=== PATIENT | male | born 1950 | race Caucasian/White ===

== ENCOUNTER 2021-09-24 06:28 | Day surgery (SDC) | payer MEDICARE ==
[~2021-09-24] VITALS: Ht 188 cm; Wt 100.4 kg
[2021-09-24 07:13] VITALS: BP 148/82; PULSE 78; TEMP 98.6
[2021-09-24 07:52] VITALS: BP 107/71; PULSE 89; TEMP 97.9
--- NOTE | 2021-09-24 07:52 | NUR ---
Pt to [facility] [place] [place] [address] via cart [place]. Pt awake and alert. Denies pain. Juice and muffin given per pt request. Will continue to monitor. Call light within reach.
[2021-09-24 08:05] VITALS: BP 113/98; PULSE 85
--- NOTE | 2021-09-24 08:05 | NUR ---
Pt continues to rest. Tolerating food and fluid without difficulties. Will continue to monitor.
[2021-09-24 08:20] VITALS: BP 113/71; PULSE 65
--- NOTE | 2021-09-24 08:20 | NUR ---
Discharge instructions reviewed. Pt voices understanding. IV site discontinued with all parts intact. Pt up to dress. Call light within reach.
--- NOTE | 2021-09-24 08:35 | NUR ---
Pt escorted to private car via wheel chair. Pt accompanied home by his .
== END 2021-09-24 08:35 | disposition home or self-care (01) ==
LOC: SDCO 06:28
DX: Z12.11 Encounter for screening for malignant neoplasm of colon (principal); Z90.79 Acquired absence of other genital organ(s); Z85.46 Personal history of malignant neoplasm of prostate; Z79.899 Other long term (current) drug therapy; Z87.891 Personal history of nicotine dependence; Z80.42 Family history of malignant neoplasm of prostate
CPT/HCPCS: J2704